=== PATIENT | female | born 1985 | race Caucasian/White ===

== ENCOUNTER → 2022-04-05 | Outpatient (CLI) | payer OTHER ==
[~2022-04-05] MED LIST: KEFLEX CAP 500500 MG PO; PHENERGAN 25 MG25 M1 PO; ZOFRAN ODT 4 MG4 MG PO
== END ==
LOC: KOH-I 15:54
DX: M25.571 Pain in right ankle and joints of right foot (principal); M79.89 Other specified soft tissue disorders; W19.XXXA Unspecified fall, initial encounter
CPT/HCPCS: 73610